=== PATIENT | female | born 1980 | race Hispanic/Latino ===

== ENCOUNTER 2016-11-06 07:08 | Inpatient (IN) | payer OTHER ==
[~2016-11-06] VITALS: Ht 170.2 cm; Wt 111.1 kg
[~2016-11-06 07:08] MED LIST: HYCET 7.5 MG-3473 ML PO; PROTONIX20 M1 PO; PROTONIX40 M3 PO; ZOFRAN ODT4 M1 SL
[2016-11-06] MEDS ORDERED: TUMS200 MG PO (07:52)
--- NOTE | 2016-11-06 08:44 | History & Physical ---
General Information and HPI MD Statement: I have seen and personally examined ALVIN RODRIGUEZ and documented this H&P. The patient is a 36 year old female at 37[] weeks and 3[] days gestation who presented with a chief complaint of PROM[]. History of Present Illness: PROM at 37w3d. Previous c/s pt desires rpt. Elevated GCT; normal GTT. 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 EENTM: Reports: no symptoms. Cardiovascular: Reports: no symptoms. Respiratory: Reports: no symptoms. GI: Reports: no symptoms. Genitourinary: Reports: no symptoms. Musculoskeletal: Reports: no symptoms. Skin: Reports: no symptoms. Neurological/Psychological: Reports: no symptoms. Hematologic/Endocrine: Reports: no symptoms. Immunologic/Allergic: Reports: no symptoms. All Other Systems: Reviewed and Negative Exam & Diagnostic Data Last 24 Hrs of Vital Signs/I&O Intake & Output 11/06 1600 11/06 0800 11/06 0000 Intake Total Output Total Balance Patient 245 lb Weight Obstetric Exam Wgt Gained During : 35 Pelvimetry: animal skinner Dilation (cm): 0 Effacement (%): 0 Station: -1 Membranes: SROM Fluid: clear Fundal Height (cm): 40 Multiple Gestation? No Contractions: occ #1 - FHR Baseline: 135 Category: 1 Estimated Weight: 7 Presentation: cephalic Patient for Induction? No Physical Exam: HEENT:m NCAT Chest: CTA CV: nl s1s2 abd: gravid, efw, cephalic ext: no c/c/e Labs Blood Type & Rh: O pos Antibody Screen: neg Hct/Hgb & Platelets #1: 12/41/366 Hct/Hgb & Platelets #2: na Rubella: imm VDRL #1: nr VDRL #2: na HbsAg: neg HIV #1: neg HIV #2 na 1 Hr P 3 Hr P/179/98/62 Group B Strep: neg Initial Ultrasound: wnl Anatomy Ultrasound: wnl Ultrasound for EFW: 6-3 Genetic Testing: neg Assessment/Plan As Ranked By This Provider Problem List: 1. Core Measures/Miscellaneous Venous Thromboembolism VTE Risk Factors: Obesity, / VTE Contraindications: No Contraindications VTE Diagnosis: No Beta Mary Anne Is Beta Mary Anne a Home Med? No Antibiotics Is Patient on Antibiotics? No
[2016-11-06 09:06] LABS: ABSOLUTE BASOPHIL COUNT 0 /CUMM (0.0-0.2); ABSOLUTE EOSINOPHIL COUNT 0.1 /CUMM (0.0-0.7); ABSOLUTE LYMPH COUNT 3.2 /CUMM (1.2-3.4); ABSOLUTE MONOCYTE COUNT 0.7 /CUMM (0.10-0.60); BASOPHIL % 0.4 % (0.0-2.0); EOSINOPHIL % 1.1 % (0-5); HEMATOCRIT 33.1 % (37-47); MEAN CORPUSCULAR HGB 23.2 PG (27.0-31.0); MEAN CORPUSCULAR VOLUME 72.4 FL (81.0-99.0); MEAN PLATELET VOLUME 10.9 FL (7.4-10.4); PLATELET COUNT 332 /CUMM (130-400); RBC DISTRIBUTION WIDTH 14.9 % (11.5-14.5); RED BLOOD CELL CT 4.57 /CUMM (4.20-5.40); WHITE BLOOD CELL COUNT 11.1 /CUMM (4.8-10.8)
--- NOTE | 2016-11-06 12:42 | Labor & Delivery Summary ---
Delivery Summary Section: Section: repeat # Placenta: Placenta: nuchal cord (x_), true knot Anesthesia: SPINAL Baby's Weight: 6-12 Apgars - 1 Min: 9 Apgars - 5 Min: 9
[2016-11-07 08:47] LABS: ABSOLUTE BASOPHIL COUNT 0 /CUMM (0.0-0.2); ABSOLUTE EOSINOPHIL COUNT 0.1 /CUMM (0.0-0.7); ABSOLUTE GRANULOCYTE CT 9.1 /CUMM (1.4-6.5); ABSOLUTE LYMPH COUNT 3.9 /CUMM (1.2-3.4); ABSOLUTE MONOCYTE COUNT 0.7 /CUMM (0.10-0.60); BASOPHIL % 0.3 % (0.0-2.0); EOSINOPHIL % 0.7 % (0-5); GRANULOCYTE % 65.7 % (42.2-75.2); HEMATOCRIT 31.4 % (37-47); MEAN CORPUSCULAR HGB 23.2 PG (27.0-31.0); MEAN CORPUSCULAR HGB CONC 31.7 G/DL (33.0-37.0); MEAN CORPUSCULAR VOLUME 73.3 FL (81.0-99.0); MEAN PLATELET VOLUME 9.6 FL (7.4-10.4); PLATELET COUNT 313 /CUMM (130-400); RED BLOOD CELL CT 4.28 /CUMM (4.20-5.40); WHITE BLOOD CELL COUNT 13.8 /CUMM (4.8-10.8)
[2016-11-08] MEDS ORDERED: IBUPROFEN800 M1 PO (22:01)
[2016-11-08] MEDS ORDERED: PERCOCET 5-3251 EACH PO (22:01)
== END 2016-11-09 11:00 | DRG 540 ==
LOC: CBCO 07:08 → GNO 07:39
PROVIDERS: ADMIT Obstetrics & Gynecology
PROC: 10D00Z1 Extraction of Products of Conception, Low, Open Approach (ICD-10-PCS; principal; 2016-11-06)
DX: O34.211 Maternal care for low transverse scar from previous cesarean delivery (principal); N85.8 Other specified noninflammatory disorders of uterus; Z3A.37 37 weeks gestation of pregnancy; Z37.0 Single live birth; O13.4 Gestational [pregnancy-induced] hypertension without significant proteinuria, complicating childbirth; K21.9 Gastro-esophageal reflux disease without esophagitis; G89.29 Other chronic pain; M54.9 Dorsalgia, unspecified; O69.2XX0 Labor and delivery complicated by other cord entanglement, with compression, not applicable or unspecified; O99.613 Diseases of the digestive system complicating pregnancy, third trimester
CPT/HCPCS: GNOS; 36415; 80307; 81001; 84112; 87086; 87389; G0463; J0690; J1170; J1650; J1885; J7120

== ENCOUNTER 2017-05-30 07:17 | Emergency (ER) | payer OTHER ==
[~2017-05-30 07:17] MED LIST changes: +IBUPROFEN800 M1 PO; +PERCOCET 5-3251 EACH PO; +TUMS200 MG PO
[2017-05-30 07:21] VITALS: BP 133/87
[2017-05-30] MEDS ORDERED: PREDNISONE10 M2 PO (08:00)
[2017-05-30] MEDS ORDERED: CHERATUSSIN AC118 M1 PO (08:00)
[2017-05-30] MEDS ORDERED: PROAIR HFA8.5 GM INH (08:00)
--- NOTE | 2017-05-30 08:02 | ED INFLUENZA/URI COMPLAINT ---
History of Present Illness General Chief Complaint: Upper Respiratory Sx/Fever Stated Complaint: URI X 2MNTHS Source: patient Exam Limitations: no limitations Vital Signs & Intake/Output Vital Signs & Intake/Output Vital Signs Date Time Temp Pulse Resp B/P B/P Pulse O2 O2 Flow FiO2 Mean Ox Delivery Rate 05/30 0721 98.3 69 16 133/87 99 Room Air Allergies Coded Allergies: No Known Allergies (11/06/16) Triage Note: PT TO ED C/O FEELING ILL SINCE MARCH. REPORTS THAT SHE HAS HAD A COUGH AND CONGESTION FOR OVER 2 MONTHS, WAS PUT ON AUGMENTIN X3 WEEKS AGO AND FELT BETTER, BUT ONCE THE MEDICINE STOPPED THE COUGH CAME BACK. DID NOT SEE HER PCP FOR THIS, WENT TO A WALK-IN. Triage Nurses Notes Reviewed? yes Onset: Gradual Duration: 2 weeks Timing: recent history Severity: moderate Prior Episodes/Possible Cause: occassional episodes No Modifying Factors: none Associated Symptoms: cough : No Patient currently breastfeeds: No HPI: Patient is a 37-year-old female presenting to the emergency department chief complaint of tight cough, upper respiratory congestion, postnasal drip going on for the past several weeks. She reports that she was treated with Augmentin for sinus infection and ear infection, has been off antibiotics for 10 days. She was feeling better but the cough started to return. Denies any fevers or chills. Positive malaise. No chest pain palpitations or shortness of breath. She reports "coughing fits" randomly throughout the day. No history of asthma or smoking. Denies changes in weight. (Emily ECKERT,Cheryl) Reconcile Medications Albuterol Sulfate (Proair Hfa) 90 MCG HFA.AER.AD 2 PUF INH Q4-6 PRN PRN sob Calcium Carbonate (TUMS) 200 MG CALCIUM (500 MG) TAB.CHEW 2 TAB PO Q4 HEARTBURN (Reported) Codeine Phosphate/Guaifenesi (Cheratussin AC Syrup) 10 MG-100 MG/5 ML LIQUID 10 ML PO Q8HR PRN COUGH Ibuprofen 800 MG TABLET 800 MG PO Q6P PRN UTERINE CRAMPING Prednisone 10 MG TABLET 1 TAB PO DAILY bronchitis 4 tabs po x 3 days, 3 tabs po x 3 days, 2 tabs po x 3 days, 1 tab po x 3 days (Long Hassan DO) Past History Travel History Traveled to [place] past 21 day No Medical History Any Pertinent Medical History? 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 No (Cheryl Caban) Review of Systems Review of Systems Constitutional: Reports: malaise. Comments Review of systems: See HPI, All other systems negative. Constitutional, no chills fever or weight loss HEENT: No visual changes no sore throat Cardiovascular: No chest pain ,palpitation , orthopnea or ankle swelling Skin, no jaundice no rashes Respiratory: No dyspnea sputum or hemoptysis GI: No nausea no vomiting Muscle skeletal: no back pain, no neck pain, Neurologic: No numbness no confusion or headaches Psych: No stress anxiety or depression,. Heme/endocrine: No bruising no bleeding no polyuria or polydipsia Immunology: No splenectomy or history of AIDS (Cheryl Caban) Physical Exam Physical Exam General Appearance: well developed/nourished, no apparent distress, alert, awake , comfortable Ears, Nose, Throat: nasal congestion, nasal drainage Comments: Well-developed well-nourished person in no acute distress HEENT: Pupils equally round and reactive to light and accommodation. Nose is atraumatic. External auditory canal and Tympanic membranes clear. Pharynx normal. No swelling or edema. Clear nasal discharge bilaterally. Neck: Supple, no lymphadenopathy, normal range of motion without pain or tenderness Cardiovascular: Regular rate and rhythms no murmurs rubs or gallops, normal JVP Respiratory: Chest nontender. No respiratory distress.breath sounds clear to auscultation bilaterally. Dry cough on exam. Extremity: No edema Neuro: Alert oriented x3 Skin: No appreciable rash on exposed skin, skin is warm and dry. Psych: Mood and affect is normal, memory and judgment is normal. Core Measures Sepsis Present: No Sepsis Focused Exam Completed? No (Cheryl Caban) Progress Differential Diagnosis: pneumonia, pharyngitis, sinusitis, bronchitis, laryngitis Plan of Care: patient is afebrile, vitals are stable, lungs are clear to auscultation. She does have a dry cough on exam. Likely residual inflammation secondary to recent infection. No history of asthma or smoking. No changes in weight. No indication for imaging of the chest at this time. Patient will be trialed on a course of prednisone, given inhaler and cough medication. She'll follow up with her primary care physician. Initial ED EKG: none (Cheryl Caban) Departure Departure Time of Disposition: 757 Disposition: HOME OR SELF CARE Condition: Stable Clinical Impression Primary Impression: Bronchitis Referrals: Patient Has No Primary Care Dr (PCP/Family) Additional Instructions: Follow-up with your primary care physician call to make an appointment. Take prednisone taper as prescribed. Take Robitussin with codeine as directed help with cough. Do not drivable taking the Robitussin with codeine as to make you drowsy. Use inhaler as directed. Departure Forms: Customer Survey General Discharge Information Prescriptions: Current Visit Scripts Prednisone 1 TAB PO DAILY #30 TAB 4 tabs po x 3 days, 3 tabs po x 3 days, 2 tabs po x 3 days, 1 tab po x 3 days Albuterol Sulfate (Proair Hfa) 2 PUF INH Q4-6 PRN PRN sob #1 INHAL Codeine Phosphate/Guaifenesi (Cheratussin AC Syrup) 10 ML PO Q8HR PRN COUGH #120 ML (Cheryl Caban) PA/FREEDOM OF INFORMATION OFFICER Co-Sign Statement Statement: ED Attending supervision documentation- [] I saw and evaluated the patient. I have also reviewed all the pertinent lab results and diagnostic results. I agree with the findings and the plan of care as documented in the PA's/FREEDOM OF INFORMATION OFFICER's documentation. [X] I have reviewed the ED Record and agree with the PA's/FREEDOM OF INFORMATION OFFICER's documentation. [] Additions or exceptions (if any) to the PAs/FREEDOM OF INFORMATION OFFICER's note and plan are summarized below: [] (Long Hassan DO
== END 2017-05-30 08:12 ==
LOC: ERH 07:17
DX: J40 Bronchitis, not specified as acute or chronic (principal)